=== PATIENT | male | born 1980 | race African-American/Black ===

== ENCOUNTER 2017-12-22 16:33 | Inpatient (IN) | payer MEDICARE ==
[~2017-12-22] VITALS: Ht 175.3 cm; Wt 59.0 kg
--- NOTE | ~2017-12-22 | RHP ---
PATIENT: CALISTA CARCAMO MEDICAL RECORD: [id number] ACCOUNT: [id number] LOCATION:[facility]1109 : 80 ADMISSION DATE: 12/22/17 REHABILITATION HISTORY AND PHYSICAL EXAMINATION POST ADMISSION PHYSICIAN EXAMINATION Post-Admission Physical Examination and History And Physical ADMITTING DIAGNOSES: Traumatic brain injury with hypoxia. HISTORY OF PRESENT ILLNESS: The patient is a 37-year-old gentleman with a history of influenza complicated with respiratory failure and prolonged mechanical ventilation, leading to a tracheostomy in ECMO. He presented to ED on 10/31 in mild shortness of breath, was noted to be hypoxic. He was seen on 10/23 and was treated with Tamiflu. His influenza RSV was reportedly negative. He was transferred to [facility], was intubated due to his hypoxia, he was placed on ECMO and treated with vancomycin, Zosyn, and Levaquin. Blood and sputum cultures were positive for MRSA. During his course in the acute hospital, he required Levophed, sedation, tracheostomy, prolonged vent management, and antibiotic. He also required emergent hemodialysis for fluid control and hyperkalemia and renal was consulted secondary to septic shock and acute kidney injury. He has got past medical history significant for andrade, hypertension, diabetes, arthritis, and smoking. He was transferred to [facility] for management of his vent tracheostomy, which was kept capped and decannulated on 12/15 and infection management. Currently, continues to be on vancomycin. He is on room air at 2 liters, sometimes via nasal cannula, trach site and drainage are intact. He does have a decubitus on sacrum, which are using Silvadene dressing for and he is doing well with this. Dr. Diaz, one of the wound care management physicians felt he did not need surgical debridement at this time, but possible enzymatic debridement in the future per Dr. Price. She would like to follow up in about a week. I will continue on p.o. antibiotics, doxycycline. We will follow up CT of chest in 1 month or earlier if the patient becomes febrile. He reported 6 weeks from his first negative culture on 11/04. He was placed on Seroquel 50 mg for nighttime anxiety. The patient has trunk and muscle weakness and desires to go back home and get back to his prior level of function and this will require intensive inpatient therapy to get him back to his prior level of functioning. COMORBIDITIES: In this patient include respiratory failure, pneumonia, MRSA, acute kidney injury, generalized weakness, hypertension, hyperkalemia, hyponatremia, decubitus, diabetes, hypoxia, hypoglycemia, adult respiratory distress syndrome, sepsis, PEG tube. PAST MEDICAL HISTORY: Significant for ARDS, pneumonia, hypoxic respiratory failure, hypoglycemia, arthritis, hypertension, and diabetes. PAST SURGICAL HISTORY: Please see previous charts. ALLERGIES: No known drug allergies. CURRENT MEDICATIONS: Include Floranex daily, folate 1 mg daily, amlodipine 10 mg daily, thiamine 100 mg daily, hydrochlorothiazide 25 mg daily, Protonix 40 mg daily, multivitamin daily, Dakin solution to apply topically daily, Silvadene cream to apply as needed, MiraLax 17 grams in 8 ounces of water daily, a low resistance sliding scale with Humalog, DuoNeb updrafts as needed, artificial HISTORY AND PHYSICAL [id number] CARCAMO,CALISTA tears p.r.n. He is on Levemir 10 units b.i.d., doxycycline 100 mg b.i.d., Seroquel 50 mg at bedtime., hydralazine 100 mg t.i.d., Keppra 750 mg b.i.d., lorazepam 0.5 mg q.6 hours p.r.n., Lotrimin cream as needed, [place] 5/325 one tab q.6 hours p.r.n., and Lasix 40 mg b.i.d. HABITS: Does have a history of tobacco use. FAMILY HISTORY: Noncontributory. SOCIAL HISTORY: The patient hopes to return back home and get back to his prior level of functioning. REVIEW OF SYSTEMS: GENERAL: Does complain of weakness and fatigue. HEENT: Denies cold, cough, or congestion. CARDIOVASCULAR: Denies chest pain. PHYSICAL EXAMINATION: VITAL SIGNS: Stable, afebrile. He does note to be tachycardic. GENERAL: A well-developed gentleman, in no distress. HEENT: Does have a well-demarcated tracheostomy in place. LUNGS: Clear at this time. HEART: Regular rate and rhythm. ABDOMEN: Benign. EXTREMITIES: No clubbing, cyanosis, or edema. NEUROLOGIC: Seems intact. LABORATORY DATA: His white count is 9.9, H&H of 7.5 and 23.8, and platelet count was noted to be 202. Sodium is 134, potassium 4.7, BUN and creatinine of 32 and 1.1, and blood sugar was noted to be 146. ASSESSMENT: This 37-year-old gentleman admitted to the rehab with a working diagnosis of traumatic brain injury secondary to hypoxia and also flu and pneumonia. The patient has potential to make improvement. We instituted the following multidisciplinary therapies which include, but not limited to physical, occupational, respiratory, speech, nutritional services, prosthetics, and orthotics. Given his complex medical condition and risk for more complications, rehabilitation services cannot be provided at a low level of care such as a senior living facility. PLAN: 1. Admit to [facility] rehab for intensive inpatient therapy to include the following disciplines: A. Physical therapy to improve gait, all transfer skills and bed mobility to a modified independent level. B. Occupational therapy to improve activities of daily living to a modified independent level. C. Case management to assist with discharge planning and placement options. D. Nutrition to assist with nutritional needs. E. Rehabilitation nursing to assist in monitoring the patient's underlying conditions and to assist with any type of bowel or bladder management. 2. The patient's current medication and medical care will be continued. We will go ahead and type and cross for 2 units and go ahead and give him some blood. We will watch his tachycardia and I will follow up in the a.m. HISTORY AND PHYSICAL [id number] CALISTA CARCAMO TRANSINT:[id number] Voice Confirmation ID: [id number] DOCUMENT ID: [id number] JACLYN notes whether there has been none or any medical/functional change since admission: - No change since preadmission screen. JACLYN attests patient continues to be appropriate for IRF: - Continues to be appropriate. CELSO ARTIS MD at 1139 CC: [id number] DICTATION DATE: 12/23/17 1549 BLUEPRINT MAKER: 12/23/17 1650 DIS IN 01/02/18 [place] [id number] [place] [id number]
--- NOTE | ~2017-12-22 | DS ---
PATIENT:CALISTA CARCAMO :80 MEDICAL RECORD: [id number] DISCHARGE SUMMARY ADMISSION DATE: 12/22/17 DISCHARGE DATE: 01/02/18 This is a discharge dated 01/02/2018 from inpatient rehabilitation. PRIMARY DIAGNOSIS: Decreased functional ability and ability to provide activities of daily living secondary to critical illness myopathy after prolonged hospitalization with influenza, acute respiratory failure requiring mechanical ventilation and tracheostomy as well as ARDS. SECONDARY DIAGNOSES: 1. History of traumatic brain injury. 2. Hypoxia with acute respiratory failure. 3. Hypertension. 4. Diabetes. 5. Arthritis. 6. Tobacco abuse. 7. Acute kidney injury. 8. Hyponatremia. 9. Right forearm wounds. 10. Left heel wounds. 11. Sacral decubitus. 12. Anemia. 13. Acute hypoxic respiratory failure. 14. History of PEG tube placement. HOSPITAL COURSE: Full H&P is located elsewhere on the chart on this 37-year-old male who was admitted to inpatient rehab for physical therapy and occupational therapy to improve gait, transfer skills, bed mobility, and activities of daily living to a modified independent level. He was evaluated by PT and OT and their plans of care were followed. He required [facility] care for observation and assessment and medication administration as well as wound care. Fingerstick blood sugars were monitored throughout his hospital stay with appropriate adjustment in medications as needed. He remained on supplemental oxygen as needed to keep saturations greater than 92%. Electrolytes were managed by protocol. He was placed on doxycycline for an infected coccyx wound. He was on nebulized medications for respiratory support. He received a transfusion of 2 units of packed red blood cells for low H&H on 12/23/2017. He was also seen by speech therapy for evaluation. He was cooperative with therapies, progressing towards goals. Case management was involved for discharge planning. He was considered stable for discharge on 01/02/2018. DISCHARGE MEDICATIONS: As per discharge medication reconciliation. DISCHARGE DISPOSITION: The patient is discharged home. He will continue his current diet and level of activity. He will have home health for continued nursing, PT and OT. He will follow up with primary care in 1 week and with specialist as directed. At least 30 minutes was spent in this discharge activity. TRANSINT:[id number] Voice Confirmation ID: [id number] DOCUMENT ID: [id number] DISCHARGE SUMMARY REPORT [id number] CALISTA CARCAMO Dictated By: YAMILET ROSE I have interviewed/examined the above patient and agree with these documented findings. CELSO ARTIS MD at 1157 at 0940 CC: [id number] DICTATION DATE: 02/17/18 1240 ACTIVITY THERAPIST: 02/18/18 0945 DIS IN 01/02/18 [facility] [address] [place] [address]
[2017-12-22] MEDS ORDERED: DOXYCYCLINE HY100 M2 PO (16:51)
[2017-12-22] MEDS ORDERED: NORVASC5 MG PO (16:52)
[2017-12-22] MEDS ORDERED: EURAX60 GM TP (16:52)
[2017-12-22] MEDS ORDERED: SANTYL30 GM TP (16:53)
[2017-12-22] MEDS ORDERED: FOLIC ACID1 MG PO (16:53)
[2017-12-22] MEDS ORDERED: LASIX40 MG PO (16:54)
[2017-12-22] MEDS ORDERED: HCTZ25 MG PO (16:54)
[2017-12-22] MEDS ORDERED: HYDRALAZINE HC100 MG PO (16:56)
[2017-12-22] MEDS ORDERED: HYDROCODON-ACE1 EAC7 PO (16:56)
[2017-12-22] MEDS ORDERED: LEVEMIR100 U/M1 SC (16:57)
[2017-12-22] MEDS ORDERED: HUMALOG 30100 UNITS/ SQ (16:58)
[2017-12-22] MEDS ORDERED: IPRAT-ALBUT 0.5-3 ML UPD (16:59)
[2017-12-22] MEDS ORDERED: KEPPRA750 MG PO (17:00)
[2017-12-22] MEDS ORDERED: ATIVAN0.5 MG PO (17:01)
[2017-12-22] MEDS ORDERED: VITAMIN B-1100 M1 (17:02)
[2017-12-22] MEDS ORDERED: PROTONIX40 MG PO (17:02)
[2017-12-22] MEDS ORDERED: MULTIPLE VITAMI1 TA1 PO (17:02)
[2017-12-22 17:58] VITALS: BP 124/78; BMI 19.2
[2017-12-22 20:43] VITALS: BP 120/68
[2017-12-22 20:50] VITALS: BP 120/68
[2017-12-23] VITALS (8 sets, daily range): BP systolic 119–147; BP diastolic 70–89; Ht 175.3 cm; Wt 59.0 kg
[2017-12-23 06:58] LABS: BASOPHILS 0.4 % (0-2); EOSINOPHILS 7.5 % (0-7); HEMATOCRIT 23.8 % (42.0-54.0); IMMATURE GRANULOCYTES 0.2 % (0-5); MCH 27.4 pg (26.0-34.0); MCHC 31.5 g/dL (31.0-37.0); MCV 86.9 fL (80.0-100.0); MEAN PLATELET VOLUME 9.5 fL (7.4-10.4); NEUTROPHILS 66.9 % (40-80); PLATELET COUNT 202 10x3/uL (130-400); RBC 2.74 10x6/uL (4.20-6.10); RDW 14.4 % (11.5-14.5); WBC 9.9 10x3/uL (4.8-10.8)
[2017-12-23 07:12] LABS: CALC OSMOLALITY 277 mosm/kg (275-300); CALCIUM 9.4 mg/dL (8.5-10.1); CARBON DIOXIDE 30.8 mmol/L (21.0-32.0); CHLORIDE - SERUM 99 mmol/L (98-107); CREATININE - SERUM 1.1 mg/dL (0.6-1.3); GLUCOSE 146 mg/dL (74-106); POTASSIUM - SERUM 4.7 mmol/L (3.5-5.1); SODIUM 134 mmol/L (136-145); UREA NITROGEN 32 mg/dL (7-18); eGFR NON AFRICAN AMERICAN 80 mL/min (90-120)
[2017-12-23 07:32] LABS: HEMOGLOBIN 7.5 g/dL (13.5-17.5)
[2017-12-24] VITALS (10 sets, daily range): BP systolic 124–141; BP diastolic 81–86
[2017-12-24 06:00] LABS: BASOPHILS 0.3 % (0-2); EOSINOPHILS 8.5 % (0-7); HEMATOCRIT 26.7 % (42.0-54.0); HEMOGLOBIN 8.9 g/dL (13.5-17.5); IMMATURE GRANULOCYTES 0.1 % (0-5); LYMPHOCYTES 20.9 % (15-50); MCH 27.7 pg (26.0-34.0); MCHC 33.3 g/dL (31.0-37.0); MEAN PLATELET VOLUME 9.3 fL (7.4-10.4); MONOCYTES 8.5 % (2-11); NEUTROPHILS 61.7 % (40-80); PLATELET COUNT 175 10x3/uL (130-400); RBC 3.21 10x6/uL (4.20-6.10); RDW 15.6 % (11.5-14.5); WBC 9.4 10x3/uL (4.8-10.8)
[2017-12-24 06:07] LABS: MCV 83.2 fL (80.0-100.0)
[2017-12-24 06:21] LABS: CALC OSMOLALITY 272 mosm/kg (275-300); CALCIUM 9.3 mg/dL (8.5-10.1); CARBON DIOXIDE 28.7 mmol/L (21.0-32.0); CHLORIDE - SERUM 99 mmol/L (98-107); CREATININE - SERUM 1.1 mg/dL (0.6-1.3); POTASSIUM - SERUM 4.4 mmol/L (3.5-5.1); SODIUM 133 mmol/L (136-145); UREA NITROGEN 35 mg/dL (7-18); eGFR NON AFRICAN AMERICAN 80 mL/min (90-120)
[2017-12-24 06:24] LABS: GLUCOSE 73 mg/dL (74-106)
[2017-12-25 08:00] VITALS: BP 138/82
[2017-12-25 21:33] VITALS: BP 121/67
[2017-12-26 08:17] VITALS: BP 120/77
[2017-12-26 23:16] VITALS: BP 132/87
[2017-12-27 07:36] LABS: BASOPHILS 0.2 % (0-2); HEMOGLOBIN 9.5 g/dL (13.5-17.5); IMMATURE GRANULOCYTES 0.1 % (0-5); LYMPHOCYTES 19.5 % (15-50); MCH 27.4 pg (26.0-34.0); MCHC 32.8 g/dL (31.0-37.0); MCV 83.6 fL (80.0-100.0); MEAN PLATELET VOLUME 9.2 fL (7.4-10.4); MONOCYTES 7.7 % (2-11); NEUTROPHILS 68.5 % (40-80); PLATELET COUNT 195 10x3/uL (130-400); RBC 3.47 10x6/uL (4.20-6.10); RDW 15.1 % (11.5-14.5); WBC 8.5 10x3/uL (4.8-10.8)
[2017-12-27 07:52] LABS: ANION GAP 14.9 mmol/L (8-16); CALCIUM 9.4 mg/dL (8.5-10.1); CARBON DIOXIDE 24.8 mmol/L (21.0-32.0); CREATININE - SERUM 1.2 mg/dL (0.6-1.3); POTASSIUM - SERUM 4.7 mmol/L (3.5-5.1)
[2017-12-27 08:00] VITALS: BP 130/90
[2017-12-27 20:00] VITALS: BP 119/66
[2017-12-28 08:11] VITALS: BP 127/90
[2017-12-28 19:45] VITALS: BP 125/67
[2017-12-29 06:31] LABS: CALCIUM 9.1 mg/dL (8.5-10.1); CARBON DIOXIDE 23.9 mmol/L (21.0-32.0); CREATININE - SERUM 1.3 mg/dL (0.6-1.3); POTASSIUM - SERUM 4.9 mmol/L (3.5-5.1)
[2017-12-29 06:46] LABS: BASOPHILS 0.6 % (0-2); EOSINOPHILS 5.8 % (0-7); HEMATOCRIT 27.6 % (42.0-54.0); HEMOGLOBIN 9.2 g/dL (13.5-17.5); IMMATURE GRANULOCYTES 0.2 % (0-5); LYMPHOCYTES 23.3 % (15-50); MCH 27.6 pg (26.0-34.0); MCHC 33.3 g/dL (31.0-37.0); MCV 82.9 fL (80.0-100.0); MEAN PLATELET VOLUME 9.1 fL (7.4-10.4); MONOCYTES 8.9 % (2-11); NEUTROPHILS 61.2 % (40-80); PLATELET COUNT 209 10x3/uL (130-400); RBC 3.33 10x6/uL (4.20-6.10); RDW 14.9 % (11.5-14.5); WBC 6.4 10x3/uL (4.8-10.8)
[2017-12-29 08:52] VITALS: BP 129/79
[2017-12-29 22:17] VITALS: BP 136/81
[2017-12-30 09:34] VITALS: BP 124/77
[2017-12-30 20:00] VITALS: BP 121/70
[2017-12-31 07:52] VITALS: BP 115/74
[2018-01-01 07:46] VITALS: BP 136/84
[2018-01-01 18:51] VITALS: BP 134/72
[2018-01-02 08:09] VITALS: BP 111/81
== END 2018-01-02 12:05 | disposition home health service (06) | DRG 85 ==
LOC: EDSEX 16:33 → D.REHAB 16:33
PROVIDERS: Emergency Medicine
DX: S06.890A Other specified intracranial injury without loss of consciousness, initial encounter (principal); J96.91 Respiratory failure, unspecified with hypoxia; J11.00 Influenza due to unidentified influenza virus with unspecified type of pneumonia; J18.9 Pneumonia, unspecified organism; A41.9 Sepsis, unspecified organism; N17.9 Acute kidney failure, unspecified; E87.1 Hypo-osmolality and hyponatremia; A49.02 Methicillin resistant Staphylococcus aureus infection, unspecified site; R53.1 Weakness; I10 Essential (primary) hypertension; E11.649 Type 2 diabetes mellitus with hypoglycemia without coma; E87.5 Hyperkalemia